=== PATIENT | male | born 1975 | race Two or more races ===

== ENCOUNTER → 2018-04-05 | Outpatient (CLI) | payer MEDICAID ==
--- NOTE | 2018-04-05 10:40 | RADIOLOGY REPORT (SQ) ---
EXAM DESCRIPTION: CHEST PA/LATERAL COMPLETED DATE/TIME: 04/05/2018 10:07 am REASON FOR STUDY: COUGH COMPARISON: 09/21/2015 EXAM PARAMETERS: NUMBER OF VIEWS: two views TECHNIQUE: Digital Frontal and Lateral radiographic views of the chest acquired. RADIATION DOSE: NA LIMITATIONS: none FINDINGS: LUNGS AND PLEURA: No opacities, masses or pneumothorax. No pleural effusion. MEDIASTINUM AND HILAR STRUCTURES: No masses or contour abnormalities. HEART AND VASCULAR STRUCTURES: Heart normal size. No evidence for failure. BONES: No acute findings. HARDWARE: None in the chest. OTHER: No other significant finding. IMPRESSION: NO SIGNIFICANT RADIOGRAPHIC FINDING IN THE CHEST. TECHNICAL DOCUMENTATION: JOB ID: [id number] [employer] Document Preparation- All Rights Reserved Reading location - IP/workstation name: [email or web address]
--- NOTE | 2018-04-05 10:44 | RADIOLOGY REPORT (SQ) ---
EXAM DESCRIPTION: PARANASAL SINUSES COMPLETED DATE/TIME: 04/05/2018 10:07 am REASON FOR STUDY: COUGH R05 COUGH COMPARISON: None. NUMBER OF VIEWS: Three views. TECHNIQUE: Images of the paranasal sinuses acquired. LIMITATIONS: None. FINDINGS: ORBITS: No fracture. No foreign body. SINUSES: No mucosal thickening. No air fluid levels. FACIAL BONES: No fracture. OTHER: No other significant finding. IMPRESSION: NO FOREIGN BODY OR FRACTURE. NO PLAIN RADIOGRAPHIC EVIDENCE FOR SINUS DISEASE. TECHNICAL DOCUMENTATION: JOB ID: [id number] [employer]- All Rights Reserved Reading location - IP/workstation name: [email or web address]
== END ==
LOC: OD 09:30
PROVIDERS: ATTEND Internal Medicine
DX: R05 Cough (principal)
CPT/HCPCS: 70220; 71046

== ENCOUNTER 2019-03-12 12:55 | Emergency (ER) | payer SELFPAY ==
--- NOTE | 2019-03-12 13:17 | ER Document Report ---
ED Medical Screen (RME) - General Chief Complaint: Suicidal Ideation Stated Complaint: SUICIDAL IDEATION Time Seen by Provider: 03/12/19 13:13 Primary Care Provider: PARISH MURILLO MD [Primary Care Provider] - Follow up as needed Mode of Arrival: Ambulatory Information source: Patient Notes: 43-year-old male presented to ED for attempted suicide this morning. He states he put a gun to his head and someone took the gun from him and his put it out of his reach at this time. He states he has thought of an attempted suicide in the past. He was diagnosed with depression a few years ago and putting on Xanax. He states he has been on Xanax for 3 years and was on Zoloft before that. He said his family doctor put him on these he has never seen a mental health provider. She denies smoking, alcohol, but states he has been purchasing oxycodone intake and 6 a day and has not had any in over a week. I have greeted and performed a rapid initial assessment of this patient. A comprehensive ED assessment and evaluation of the patient, analysis of test results and completion of medical decision making process will be conducted by an additional ED providers. TRAVEL OUTSIDE OF THE [place] IN LAST 30 DAYS: No - Related Data Allergies/Adverse Reactions: No Known Allergies Allergy (Verified 09/22/15 03:04) Past Medical History - Social History Frequency of alcohol use: None Drug Abuse: None - Past Medical History Cardiac Medical History: Reports: Hx Hypertension Pulmonary Medical History: Reports: Hx Asthma Musculoskeltal Medical History: Reports Hx Arthritis - DDD Psychiatric Medical History: Reports: Hx Depression Past Surgical History: Reports: Hx Orthopedic Surgery - L5 laminectomy, Hx Tonsillectomy - Immunizations Hx Diphtheria, Pertussis, Tetanus Vaccination: Yes Physical Exam - Vital signs Vitals: Temp Pulse Resp BP Pulse Ox 97.6 F 118 H 24 H 125/75 94 03/12/19 12:58 03/12/19 12:58 03/12/19 12:58 03/12/19 12:58 03/12/19 12:58 Course - Vital Signs Vital signs: Temp Pulse Resp BP Pulse Ox 97.6 F 118 H 24 H 125/75 94 03/12/19 12:58 03/12/19 12:58 03/12/19 12:58 03/12/19 12:58 03/12/19 12:58 Doctor's Discharge - Discharge Referrals: PARISH MURILLO MD [Primary Care Provider] - Follow up as needed
[2019-03-12 13:58] LABS: ABSOLUTE BASOPHILS # (AUTO) 0.1 10^3/uL (0.0-0.2); ABSOLUTE EOSINOPHILS # (AUTO) 0.2 10^3/uL (0.0-0.6); ABSOLUTE LYMPHOCYTES (AUTO) 3.2 10^3/uL (0.5-4.7); ABSOLUTE MONOCYTES (AUTO) 0.8 10^3/uL (0.1-1.4); BASOPHILS % (AUTO) 0.8 % (0-2); EOSINOPHILS % (AUTO) 2.1 % (0-6); HEMATOCRIT 44.5 % (37.9-51.0); HEMOGLOBIN 14.7 g/dL (13.5-17.0); LYMPHOCYTES % (AUTO) 34.6 % (13-45); MEAN CORPUSCULAR HEMOGLOBIN 29.9 pg (27.0-33.4); MEAN CORPUSCULAR HGB CONC 32.9 g/dL (32.0-36.0); MEAN CORPUSCULAR VOLUME 91 fl (80-97); MONOCYTES % (AUTO) 8.8 % (3-13); PLATELET COUNT 256 10^3/uL (150-450); RED BLOOD COUNT 4.91 10^6/uL (4.35-5.55); RED CELL DISTRIBUTION WIDTH 13.9 % (11.5-14.0); SEGMENTED NEUTROPHILS % (AUTO) 53.7 % (42-78); TOTAL CELLS COUNTED % (AUTO) 100 %; WHITE BLOOD COUNT 9.3 10^3/uL (4.0-10.5)
[2019-03-12 14:12] LABS: APPEARANCE,URINE SLIGHTLY-CLOUDY; BILIRUBIN,URINE NEGATIVE (NEGATIVE); COLOR,URINE YELLOW; GLUCOSE, URINE 50 mg/dL (NEGATIVE); KETONES,URINE TRACE mg/dL (NEGATIVE); LEUKOCYTE ESTERASE,URINE NEGATIVE (NEGATIVE); NITRITE,URINE NEGATIVE (NEGATIVE); PROTEIN,URINE NEGATIVE (NEGATIVE); URINE SPECIFIC GRAVITY 1.032
[2019-03-12 14:21] LABS: ALBUMIN 4.4 g/dL (3.5-5.0); ALKALINE PHOSPHATASE 78 U/L (38-126); ANION GAP 12 (5-19); ASPARTATE AMINO TRANSFERASE 41 U/L (17-59); BILIRUBIN,DIRECT 0.2 mg/dL (0.0-0.4); BILIRUBIN,TOTAL 0.6 mg/dL (0.2-1.3); BLOOD UREA NITROGEN 22 mg/dL (7-20); CALCIUM 9.1 mg/dL (8.4-10.2); CARBON DIOXIDE 27 mmol/L (22-30); CHLORIDE 99 mmol/L (98-107); GLUCOSE 219 mg/dL (75-110); TOTAL PROTEIN 7.5 g/dL (6.3-8.2)
[2019-03-12 14:23] LABS: ACETAMINOPHEN < 10 ug/mL (10-30); ALCOHOL < 10 mg/dL (NONE DETECTED); SALICYLATE < 1.0 mg/dL (2.0-20.0)
[2019-03-12 14:28] LABS: URINE AMPHETAMINES SCREEN NEGATIVE; URINE BARBITURATES SCREEN NEGATIVE; URINE BENZODIAZEPINES SCREEN UNCONFIRMED POSITIVE; URINE COCAINE SCREEN NEGATIVE; URINE MARIJUANA (THC) SCREEN NEGATIVE; URINE METHADONE SCREEN NEGATIVE; URINE PHENCYCLIDINE SCREEN NEGATIVE
--- NOTE | 2019-03-12 14:51 | ER Document Report ---
ED Psych Disorder / Suicide - General Mode of Arrival: Ambulatory TRAVEL OUTSIDE OF THE [place] IN LAST 30 DAYS: No - HPI Patient complains to provider of: Suicidal attempt - Pt with h/o anxiety/depression with SI for several days and suicide attempt this am (put a loaded gun to his head). He denies prior suicide attempt. He is here with his sister. <GAVIN TURNER - Last Filed: 03/12/19 14:44> <ALEX GREEN - Last Filed: 03/12/19 19:07> - General Mode of Arrival: Ambulatory Information source: Patient <MADISON RICH - Last Filed: 03/12/19 21:32> - General Chief Complaint: Suicidal Ideation Stated Complaint: SUICIDAL IDEATION Time Seen by Provider: 03/12/19 13:13 Primary Care Provider: [facility] [Outside] - Follow up in 3-5 days [facility] [Outside] - Follow up as needed PARISH MURILLO MD [Primary Care Provider] - Follow up as needed - Related Data Allergies/Adverse Reactions: No Known Allergies Allergy (Verified 09/22/15 03:04) Past Medical History - General Information source: Patient - Social History Smoking Status: Never Smoker Frequency of alcohol use: None Drug Abuse: None Family History: Reviewed & Not Pertinent Patient has suicidal ideation: Yes Patient has homicidal ideation: No - Past Medical History Cardiac Medical History: Reports: Hx Hypertension Pulmonary Medical History: Reports: Hx Asthma Musculoskeletal Medical History: Reports Hx Arthritis - DDD Psychiatric Medical History: Reports: Hx Depression Past Surgical History: Reports: Hx Orthopedic Surgery - L5 laminectomy, Hx Tonsillectomy - Immunizations Hx Diphtheria, Pertussis, Tetanus Vaccination: Yes <GAVIN TURNER - Last Filed: 03/12/19 14:44> Review of Systems - Review of Systems Constitutional: No symptoms reported EENT: No symptoms reported Cardiovascular: No symptoms reported Respiratory: No symptoms reported Gastrointestinal: No symptoms reported Musculoskeletal: No symptoms reported Neurological/Psychological: See HPI, Suicidal ideation -: Yes All other systems reviewed and negative <GAVIN TURNER - Last Filed: 03/12/19 14:44> Physical Exam - General General appearance: Appears well In distress: None - HEENT Pharynx: Normal Neck: Normal - Respiratory Respiratory status: No respiratory distress Breath sounds: Normal - Cardiovascular Rhythm: Regular Heart sounds: Normal auscultation Murmur: No - Abdominal Bowel sounds: Normal Organomegaly: No organomegaly - Extremities General upper extremity: Normal inspection General lower extremity: Normal inspection - Neurological Neuro grossly intact: Yes Cognition: Normal Orientation: AAOx4 Speech: Normal Sensory: Normal <GAVIN TURNER - Last Filed: 03/12/19 14:44> - Vital signs Vitals: Temp Pulse Resp BP Pulse Ox 97.6 F 118 H 24 H 125/75 94 03/12/19 12:58 03/12/19 12:58 03/12/19 12:58 03/12/19 12:58 03/12/19 12:58 Course - Laboratory Result Diagrams: 03/12/19 13:25 03/12/19 13:25 <GAVIN TURNER - Last Filed: 03/12/19 14:44> - Laboratory Result Diagrams: 03/12/19 13:25 03/12/19 13:25 <ALEX GREEN - Last Filed: 03/12/19 19:07> - Laboratory Result Diagrams: 03/12/19 13:25 03/12/19 13:25 <MADISON RICH - Last Filed: 03/12/19 21:32> - Re-evaluation Re-evalutation: 03/12/19 21:31 Patient was seen and evaluated by psychiatry who agreed that the patient was not an imminent risk to himself or others at the current time. The patient was thought not to need involuntary commitment based upon this evaluation. I interviewed the patient and family member was a her with him. The patient will not stay at home alone tonight and will have support and has plans for outpatient follow-up and treatment. No current suicidality or homicidality. No hallucinations. (MADISON RICH) - Vital Signs Vital signs: Temp Pulse Resp BP Pulse Ox 98.3 F 103 H 16 134/72 H 95 03/12/19 20:47 03/12/19 20:47 03/12/19 20:47 03/12/19 20:47 03/12/19 20:47 - Laboratory Laboratory results interpreted by me: 03/12/19 03/12/19 13:25 13:25 BUN 22 H Glucose 219 H Urine Glucose (UA) 50 H Urine Ketones TRACE H Urine Urobilinogen 2.0 H Urine Ascorbic Acid 20 H Salicylates < 1.0 L Acetaminophen < 10 L Discharge <GAVIN TURNER - Last Filed: 03/12/19 14:44> <ALEX GREEN - Last Filed: 03/12/19 19:07> <MADISON RICH - Last Filed: 03/12/19 21:32> - Discharge Clinical Impression: Suicidal ideation Depression Qualifiers: Depression Type: unspecified Qualified Code(s): F32.9 - Major depressive disorder, single episode, unspecified Condition: Stable Disposition: HOME, SELF-CARE Additional Instructions: You have been evaluated both medical and behavioral health teams have been deemed appropriate for discharge. You are recommended to follow-up with outpatient mental health services for both medication management and therapeutic services. You have been provided a prescription for Zyprexa 5 mg every morning and 2.5 mg nightly; please take as directed. You have been provided local resource list of area providers including mobile crisis contact information and our local [place] crisis [facility] facility. DEPRESSION: Your evaluation reveals that you have mental depression. While symptoms may be vague, they often include disturbance of sleep, fatigue, loss of appetite, and general loss of interest in life. While depression may be a side effect of drugs, or a reaction to a major change in your life, many cases have no known cause. If depression is acute, and related to a major loss in your life, you can expect it to clear completely with time. If you have been depressed a long time, are prone to repeated bouts of depression or low mood, or have been thinking of suicide, get help. Depression can be treated with anti-depressant medication and counselling. Long-term depression will often take a few weeks to clear, even with appropriate medication. Follow-up care is important. SUICIDAL IDEATION: Suicidal ideation is a common medical term for thoughts about suicide, which may be as detailed as a formulated plan, without the suicidal act itself. Although most people who undergo suicidal ideation do not commit suicide, some go on to make suicide attempts. The range of suicidal ideation varies greatly from fleeting to detailed planning, role playing, and unsuccessful attempts. While thoughts about suicide are common, most people do not carry out serious actions to commit suicide. Based upon your evaluation and discussion with you, we do not believe you are currently at risk to act upon your thoughts of suicide. You have agreed to return to the Emergency Department, at any time, if you feel inclined to act upon your suicidal thoughts. FOLLOW-UP CARE: If you have been referred to a physician for follow-up care, call the physicians office for an appointment as you were instructed or within the next two days. If you experience worsening or a significant change in your symptoms, notify the physician immediately or return to the Emergency Department at any time for re-evaluation. Referrals: PARISH MURILLO MD [Primary Care Provider] - Follow up as needed [facility] [Outside] - Follow up as needed [facility] [Outside] - Follow up in 3-5 days
--- NOTE | 2019-03-12 16:56 | EKG REPORT ---
SEVERITY:- OTHERWISE NORMAL ECG - SINUS TACHYCARDIA : Confirmed by: Courtney Polanco MD 12-Mar-2019 16:55:26
[2019-03-12 21:52] VITALS: BP 123/64
--- NOTE | 2019-03-13 11:49 | PSYCHOLOGICAL NOTE ---
Psych Note - Psych Note Date seen by psych provider: 03/12/19 Time seen by psych provider: 18:30 Psych Note: Met with Patient who advised that earlier today he put a loaded gun to his head with intent to kill himself. He reported he text with his sister who helped him to put the gun down and consider the impact of his 12-year old son with whom he has custody.
== END 2019-03-12 22:00 | disposition home or self-care (01) ==
LOC: ER 12:55
DX: R45.851 Suicidal ideations (principal); F32.9 Major depressive disorder, single episode, unspecified; Z79.899 Other long term (current) drug therapy
CPT/HCPCS: 36415; 80053; 80307; 81001; 85025; 93005; 93010; 99285

== ENCOUNTER 2019-03-14 12:45 | Emergency (ER) | payer SELFPAY ==
--- NOTE | 2019-03-14 13:16 | ER Document Report ---
ED Medical Screen (RME) - General Chief Complaint: Suicidal Ideation Stated Complaint: PSYCH EVAL/SUICIDAL IDEATION Time Seen by Provider: 03/14/19 13:12 Primary Care Provider: PARISH MURILLO MD [Primary Care Provider] - Follow up as needed Mode of Arrival: Ambulatory Information source: Patient Notes: Patient presents reporting suicidal ideation. Patient states that he did hold a gun to his head 2 days ago. Patient states that he was being seen at [facility] but they told him that they could not care for him due to his complicated medical history. Patient with a history of diabetes, hypertension and chronic back pain. Patient uncertain of the history of mental illness although states that he was told he may have bipolar disorder. I have greeted and performed a rapid initial assessment of this patient. A comprehensive ED assessment and evaluation of the patient, analysis of test results and completion of the medical decision making process will be conducted by additional ED providers. TRAVEL OUTSIDE OF THE [place] IN LAST 30 DAYS: No - Related Data Allergies/Adverse Reactions: No Known Allergies Allergy (Verified 03/14/19 13:08) Past Medical History - Social History Chew tobacco use (# tins/day): No Frequency of alcohol use: None Drug Abuse: None - Past Medical History Cardiac Medical History: Reports: Hx Hypertension Pulmonary Medical History: Reports: Hx Asthma Musculoskeltal Medical History: Reports Hx Arthritis - DDD Psychiatric Medical History: Reports: Hx Depression Past Surgical History: Reports: Hx Orthopedic Surgery - L5 laminectomy, Hx Tonsillectomy - Immunizations Hx Diphtheria, Pertussis, Tetanus Vaccination: Yes Physical Exam - Psychological Associated symptoms: Other - Suicidal ideation Doctor's Discharge - Discharge Referrals: PARISH MURILLO MD [Primary Care Provider] - Follow up as needed
[2019-03-14 14:52] LABS: ABSOLUTE BASOPHILS # (AUTO) 0.1 10^3/uL (0.0-0.2); ABSOLUTE EOSINOPHILS # (AUTO) 0.2 10^3/uL (0.0-0.6); ABSOLUTE LYMPHOCYTES (AUTO) 2.7 10^3/uL (0.5-4.7); ABSOLUTE MONOCYTES (AUTO) 0.9 10^3/uL (0.1-1.4); ABSOLUTE NEUT (AUTO) 6.3 10^3/uL (1.7-8.2); BASOPHILS % (AUTO) 0.9 % (0-2); EOSINOPHILS % (AUTO) 1.6 % (0-6); HEMATOCRIT 43.8 % (37.9-51.0); HEMOGLOBIN 14.5 g/dL (13.5-17.0); LYMPHOCYTES % (AUTO) 26.3 % (13-45); MEAN CORPUSCULAR HEMOGLOBIN 29.6 pg (27.0-33.4); MEAN CORPUSCULAR VOLUME 90 fl (80-97); PLATELET COUNT 248 10^3/uL (150-450); SEGMENTED NEUTROPHILS % (AUTO) 62.2 % (42-78); TOTAL CELLS COUNTED % (AUTO) 100 %; WHITE BLOOD COUNT 10.1 10^3/uL (4.0-10.5)
[2019-03-14 14:54] LABS: APPEARANCE,URINE CLEAR; BILIRUBIN,URINE NEGATIVE (NEGATIVE); COLOR,URINE YELLOW; GLUCOSE, URINE >=500 mg/dL (NEGATIVE); KETONES,URINE NEGATIVE (NEGATIVE); LEUKOCYTE ESTERASE,URINE NEGATIVE (NEGATIVE); NITRITE,URINE NEGATIVE (NEGATIVE); PROTEIN,URINE NEGATIVE (NEGATIVE)
[2019-03-14 15:00] LABS: ALBUMIN 4.2 g/dL (3.5-5.0); ALKALINE PHOSPHATASE 66 U/L (38-126); ANION GAP 9 (5-19); ASPARTATE AMINO TRANSFERASE 36 U/L (17-59); BILIRUBIN,DIRECT 0.1 mg/dL (0.0-0.4); BILIRUBIN,TOTAL 0.4 mg/dL (0.2-1.3); BLOOD UREA NITROGEN 17 mg/dL (7-20); CALCIUM 9.2 mg/dL (8.4-10.2); CARBON DIOXIDE 28 mmol/L (22-30); CHLORIDE 103 mmol/L (98-107); GLUCOSE 209 mg/dL (75-110); POTASSIUM 4.4 mmol/L (3.6-5.0); TOTAL PROTEIN 7.7 g/dL (6.3-8.2)
[2019-03-14 15:02] LABS: ACETAMINOPHEN < 10 ug/mL (10-30); ALCOHOL < 10 mg/dL (NONE DETECTED)
[2019-03-14 15:10] LABS: URINE AMPHETAMINES SCREEN NEGATIVE; URINE BARBITURATES SCREEN NEGATIVE; URINE BENZODIAZEPINES SCREEN NEGATIVE; URINE COCAINE SCREEN NEGATIVE; URINE MARIJUANA (THC) SCREEN NEGATIVE; URINE METHADONE SCREEN NEGATIVE; URINE PHENCYCLIDINE SCREEN NEGATIVE
--- NOTE | 2019-03-14 16:22 | PSYCHOLOGICAL NOTE ---
Psych Note - Psych Note Date seen by psych provider: 03/14/19 Time seen by psych provider: 14:25 Psych Note: Reason for Consult: Suicidal Ideation Patient presents reporting suicidal ideation. Patient states that he did hold a gun to his head 2 days ago. Patient states that he was being seen at [facility] but they told him that they could not care for him due to his complicated medical history. Patient reports he went to [facility] for hip follow-up as instructed to do after his being seen on Tuesday. He states that when he told them he was still having thoughts of harming himself they brought him to [facility]. After sitting over at [facility] they reported that he is medical condition was too acute for them and that he had to be evaluated at [facility] ED. Patient confirms he has not tried to hurt himself at all that he is just been experiencing passive suicidal ideation i.e. no plans means or intent. Patient discloses wanting to get help which is why he followed up with [facility] today. He denies any difficulties with withdrawal. Patient is alert and orientated to person, place, time and circumstance. Mood euthymic with blunted affect. Patient endorses chronic passive suicidal ideation from "years." he denies homicidal ideation. Delusions are absent and behaviors congruent with an intact reality based presentation ie organized and linear thought process. Eye contact is well-maintained. Conversational speech is within normal rate, tone and prosody. Intellectual abilities appear to be within the average range. Attention and concentration are good. Insight, judgment, impulse control are good. Diagnosis: Substance abuse Bipolar No medication recommendations at this time Impression\\plan: Patient is cleared from acute psychiatric services. Patient presents to [facility] with passive chronic suicidal ideation i.e. no plans means or intent. Patient was evaluated by Dr. Mullen 2 days ago after the event the patient discusses of holding a gun to his head. His follow-up plan of care was to go to [facility] for outpatient mental health services. Patient was attempting to follow through with his mental health recommendation however when he disclosed that he was still having passive suicidal ideation they brought him to the crisis center. Patient has not had any further difficulties with suicidal gestures, attempts, or planning after being evaluated on Tuesday. Patient has a strong support network with family that lives next door to the patient; he can even stay with his sister or father which are both his neighbors. Dr. Mullen was consulted to care management of this patient; attending physicians in agreement with recommendations and disposition.
--- NOTE | 2019-03-14 16:54 | ER Document Report ---
ED Psych Disorder / Suicide - General Chief Complaint: Suicidal Ideation Stated Complaint: PSYCH EVAL/SUICIDAL IDEATION Time Seen by Provider: 03/14/19 13:12 Primary Care Provider: PARISH MURILLO MD [ACTIVE STAFF] - Follow up as needed Mode of Arrival: Ambulatory Notes: 43-year-old male with history of depression and anxiety, [id number] diabetes mellitus, hypertension, chronic back and nerve pain presents to the emergency department with suicidal ideations. Patient seen here 2 days ago for the same chief complaint where he put a gun to his head but was talked down by his sister and subsequently discharged by a psychiatric team. Patient states that the feeling is not subsided so he called [facility] and was brought in here today. Patient denies homicidal ideations, denies any auditory or visual hallucinations. TRAVEL OUTSIDE OF THE [place] IN LAST 30 DAYS: No - Related Data Allergies/Adverse Reactions: No Known Allergies Allergy (Verified 03/14/19 13:08) Past Medical History - General Information source: Patient - Social History Smoking Status: Never Smoker Chew tobacco use (# tins/day): No Frequency of alcohol use: None Drug Abuse: None Family History: Reviewed & Not Pertinent Patient has suicidal ideation: Yes Patient has homicidal ideation: Yes - Past Medical History Cardiac Medical History: Reports: Hx Hypertension Pulmonary Medical History: Reports: Hx Asthma Musculoskeletal Medical History: Reports Hx Arthritis - DDD Psychiatric Medical History: Reports: Hx Depression Past Surgical History: Reports: Hx Orthopedic Surgery - L5 laminectomy, Hx Tonsillectomy - Immunizations Hx Diphtheria, Pertussis, Tetanus Vaccination: Yes Review of Systems - Review of Systems Constitutional: See HPI EENT: No symptoms reported Cardiovascular: See HPI Respiratory: See HPI Gastrointestinal: See HPI Genitourinary: No symptoms reported Male Genitourinary: No symptoms reported Musculoskeletal: No symptoms reported Skin: No symptoms reported Hematologic/Lymphatic: No symptoms reported Neurological/Psychological: See HPI Physical Exam - Vital signs Vitals: Temp Pulse Resp BP Pulse Ox 98.4 F 113 H 16 150/78 H 93 03/14/19 13:06 03/14/19 13:06 03/14/19 13:06 03/14/19 13:06 03/14/19 13:06 - Notes Notes: PHYSICAL EXAMINATION: Reviewed vital signs and charting by RN GENERAL: Alert, interacts well. No acute distress. HEAD: Normocephalic, atraumatic. EYES: Pupils equal and round. Extraocular movements intact. ENT: Oral mucosa moist, tongue midline. NECK: Full range of motion. Trachea midline. LUNGS: Clear to auscultation bilaterally, no wheezes, rales, or rhonchi. No respiratory distress. HEART: Regular rate and rhythm. No murmur ABDOMEN: soft, non-tender. No distention. Bowel sounds present EXTREMITIES: Moves all 4 extremities spontaneously. No edema, No cyanosis. PSYCH: Flat affect, depressed mood SKIN: Warm, dry, normal turgor. No rashes or lesions noted. Course - Re-evaluation Re-evalutation: 03/14/19 17:19 Patient presents for follow-up per [facility]. Patient seen here on 03/12 and was discharged by the psychiatric team. Patient attempted to go to [place] but due to his medical comorbidities they deemed he was not a candidate for their facility so he came here. Patient has been medically cleared. It appears the patient is medically stable for discharge and mental health wishes to discharge patient with close follow-up services in place. - Vital Signs Vital signs: Temp Pulse Resp BP Pulse Ox 98.4 F 113 H 16 150/78 H 93 03/14/19 13:06 03/14/19 13:06 03/14/19 13:06 03/14/19 13:06 03/14/19 13:06 - Laboratory Result Diagrams: 03/14/19 14:43 03/14/19 14:18 Laboratory results interpreted by me: 03/14/19 03/14/19 14:18 14:18 Glucose 209 H Urine Glucose (UA) >=500 H Urine Urobilinogen 4.0 H Salicylates 1.0 L Acetaminophen < 10 L Discharge - Discharge Clinical Impression: Suicidal ideation Depression Qualifiers: Depression Type: unspecified Qualified Code(s): F32.9 - Major depressive disorder, single episode, unspecified Condition: Stable Disposition: HOME, SELF-CARE Instructions: Suicidal Ideation ([facility]) Additional Instructions: Please return if you have thoughts of wanting to hurt yourself, hurt others, or have any other symptoms that are concerning to you. Referrals: PARISH MURILLO MD [ACTIVE STAFF] - Follow up as needed
[2019-03-14 18:04] VITALS: BP 155/93
--- NOTE | 2019-03-14 19:04 | EKG REPORT ---
SEVERITY:- NORMAL ECG - SINUS RHYTHM : Confirmed by: Courtney Polanco MD 14-Mar-2019 19:03:16
== END 2019-03-14 18:04 | disposition home or self-care (01) ==
LOC: ER 12:45
DX: R45.851 Suicidal ideations (principal); R45.850 Homicidal ideations; F32.9 Major depressive disorder, single episode, unspecified; E11.9 Type 2 diabetes mellitus without complications; I10 Essential (primary) hypertension; J45.909 Unspecified asthma, uncomplicated
CPT/HCPCS: 36415; 80053; 80307; 81001; 85025; 93005; 93010; 99285

== ENCOUNTER 2020-04-25 08:11 | Emergency (ER) | payer SELFPAY ==
[2020-04-25 08:21] VITALS: BP 134/92
[2020-04-25] MEDS ORDERED: DEXAMETHASONE SOD PHOS INJ 10 MG/1 ML VIAL IM ONE (08:28)
[2020-04-25] MEDS ORDERED: KETOROLAC TROMETHAMINE 60 MG/2 ML SDV IM ONE (08:28)
--- NOTE | 2020-04-25 08:31 | ER Document Report ---
HPI - HPI Time Seen by Provider: 04/25/20 08:15 Context: Patient is a 44-year-old male with a history of hypertension diabetes who presents emergency department with a chief complaint of back pain. He describes his pain as a sharp pain. It woke him up in the morning 3:00 in the morning and radiates down both sides of his legs. Denies any new bladder or bowel dysfunction. States that he has had tingling in both legs since he had back surgery in the past. Patient has not tried to walk this morning. Patient has a history of BPH. - ROS Systems Reviewed and Negative: Yes All other systems reviewed and negative - CONSTITUTIONAL Constitutional: DENIES: Fever, Chills - EENT EENT: DENIES: Sore Throat, Ear Pain, Congestion, Eye problems - NEURO Neurology: DENIES: Headache - CARDIOVASCULAR Cardiovascular: DENIES: Chest pain - RESPIRATORY Respiratory: DENIES: Trouble Breathing, Coughing - GASTROINTESTINAL Gastrointestinal: DENIES: Abdominal Pain, Nausea, Patient vomiting, Diarrhea - URINARY Urinary: DENIES: Dysuria, Urgency, Frequency - REPRODUCTIVE Reproductive: DENIES: : - MUSCULOSKELETAL Musculoskeletal: REPORTS: Extremity pain - radiates from back pain, Back Pain - Bilateral - DERM Skin Color: Normal Skin Problems: None Past Medical History - General Information source: Patient - Social History Smoking Status: Unknown if Ever Smoked Family History: Reviewed & Not Pertinent - Past Medical History Cardiac Medical History: Reports: Hx Hypertension Pulmonary Medical History: Reports: Hx Asthma Musculoskeletal Medical History: Reports Hx Arthritis - DDD Psychiatric Medical History: Reports: Hx Depression Past Surgical History: Reports: Hx Orthopedic Surgery - L5 laminectomy, Hx Tonsillectomy - Immunizations Hx Diphtheria, Pertussis, Tetanus Vaccination: Yes Vertical Provider Document - CONSTITUTIONAL Agree With Documented VS: Yes Exam Limitations: No Limitations General Appearance: No Apparent Distress - INFECTION CONTROL TRAVEL OUTSIDE OF THE [place] IN LAST 30 DAYS: No - HEENT HEENT: Atraumatic, Normocephalic, PERRLA - NECK Neck: Normal Inspection - RESPIRATORY Respiratory: Breath Sounds Normal, No Respiratory Distress - CARDIOVASCULAR Cardiovascular: Regular Rate, Regular Rhythm Pulses: Normal: Radial - MUSCULOSKELETAL/EXTREMETIES Musculoskeletal/Extremeties: FROM, Tender - Bilateral lower back - NEURO Level of Consciousness: Awake, Alert, Appropriate Motor/Sensory: No Motor Deficit, No Sensory Deficit - DERM Integumentary: Warm, Dry, No Rash Course - Re-evaluation Re-evalutation: 04/25/20 10:37 Patient states that he feels better. He is able to move his legs. Range of motion is improved. Have a low suspicion for cauda equina syndrome, epidural abscess, or any life-threatening etiology at this time. Advised patient to follow-up with his primary care provider and get a referral for physical therapy. He is in agreement with this plan. Follow-up precautions were given. Verbal discharge instructions were given to the patient. They verbalized understanding. They are stable for discharge. - Vital Signs Vital signs: Temp Pulse Resp BP Pulse Ox 97.9 F 84 18 134/92 H 95 04/25/20 08:20 04/25/20 08:20 04/25/20 08:20 04/25/20 08:20 04/25/20 08:20 Discharge - Discharge Clinical Impression: Back pain Qualifiers: Back pain location: low back pain Chronicity: acute Back pain laterality: bilateral Sciatica presence: with sciatica Sciatica laterality: bilateral sciatica Qualified Code(s): M54.42 - Lumbago with sciatica, left side Condition: Stable Disposition: HOME, SELF-CARE Additional Instructions: You were seen today in the emergency department for back pain. Please follow-up with your primary care provider and get a referral for physical therapy. Take Flexeril as needed. You can also take ibuprofen 600 mg every 6 hours as needed for pain. Prescriptions: Cyclobenzaprine HCl [Flexeril 10 mg Tablet] 10 mg PO TIDP PRN #15 tab PRN Reason: Forms: Return to Work Referrals: BOY DAVIS MD [PEDIATRICS] - 04/28/20
[2020-04-25] MEDS ORDERED: LIDOCAINE 5% (700 MG) TRANSDERMAL ADH..PATCH TP ONE (08:32)
[2020-04-25] MEDS ORDERED: DEXAMETHASONE SOD PHOSPHATE INJ 4 MG/1 ML VIAL ONE (08:38)
[2020-04-25 10:12] LABS: APPEARANCE,URINE CLEAR; BILIRUBIN,URINE NEGATIVE (NEGATIVE); COLOR,URINE YELLOW; GLUCOSE, URINE 50 mg/dL (NEGATIVE); KETONES,URINE NEGATIVE (NEGATIVE); PROTEIN,URINE NEGATIVE (NEGATIVE); URINE SPECIFIC GRAVITY 1.024; UROBILINOGEN,URINE NEGATIVE mg/dL (<2.0)
== END 2020-04-25 11:10 | disposition home or self-care (01) ==
LOC: ER 08:11
DX: M54.42 Lumbago with sciatica, left side (principal); M54.41 Lumbago with sciatica, right side; I10 Essential (primary) hypertension; E11.9 Type 2 diabetes mellitus without complications; J45.909 Unspecified asthma, uncomplicated; Z98.890 Other specified postprocedural states
CPT/HCPCS: 99284; 96372; 81001; J1885; J1100

== ENCOUNTER 2020-04-29 23:32 | Emergency (ER) | payer SELFPAY ==
[2020-04-30] MEDS ORDERED: OXYCODONE-ACETAMINOPHEN 5-325 MG TABLET PO ONE (00:40)
[2020-04-30] MEDS ORDERED: PREDNISONE 20 MG TABLET PO ONE (00:40)
--- NOTE | 2020-04-30 00:42 | ER Document Report ---
ED Medical Screen (RME) - General Chief Complaint: Back Pain Stated Complaint: LOWER BACK PAIN Time Seen by Provider: 04/30/20 00:39 Notes: HPI: 44-year-old male presenting by EMS for evaluation of continuing low back pain. Patient reports he was seen 4 days ago for same complaint. Did not follow-up with anyone regarding the back pain. Patient states that the pain is across the entire lower back and seems to radiate down the lateral anterior left leg. He reports numbness and tingling of the leg with difficulty walking secondary to pain and numbness. No incontinence of urine or bowel no fever no trauma. Patient reports prior history of lumbar surgery in 2003 at [facility]. PHYSICAL EXAMINATION: Mild tenderness across the lumbar back with increased discomfort on the left side into the left gluteal region. Patient is able to lift the left leg in the wheelchair, somewhat limited exam by positioning. No saddle anesthesia. Reports some numbness tingling over the anterior and lateral portions of the left leg I have greeted and performed a rapid initial assessment of this patient. A comprehensive ED assessment and evaluation of the patient, analysis of test results and completion of medical decision making process will be conducted by an additional ED providers. TRAVEL OUTSIDE OF THE [place] IN LAST 30 DAYS: No - Related Data Allergies/Adverse Reactions: No Known Allergies Allergy (Verified 04/30/20 00:36) Past Medical History - Past Medical History Cardiac Medical History: Reports: Hx Hypertension Pulmonary Medical History: Reports: Hx Asthma Musculoskeltal Medical History: Reports Hx Arthritis - DDD Psychiatric Medical History: Reports: Hx Depression Past Surgical History: Reports: Hx Orthopedic Surgery - L5 laminectomy, Hx Tonsillectomy - Immunizations Hx Diphtheria, Pertussis, Tetanus Vaccination: Yes Physical Exam - Vital signs Vitals: Temp Pulse Resp BP Pulse Ox 98.4 F 111 H 18 142/91 H 93 04/30/20 00:17 04/30/20 00:17 04/30/20 00:17 04/30/20 00:17 04/30/20 00:17 Course - Vital Signs Vital signs: Temp Pulse Resp BP Pulse Ox 98.4 F 111 H 18 142/91 H 93 04/30/20 00:17 04/30/20 00:17 04/30/20 00:17 04/30/20 00:17 04/30/20 00:17
[2020-04-30 01:18] LABS: APPEARANCE,URINE CLOUDY; BILIRUBIN,URINE NEGATIVE (NEGATIVE); COLOR,URINE YELLOW; GLUCOSE, URINE 150 mg/dL (NEGATIVE); KETONES,URINE NEGATIVE (NEGATIVE); LEUKOCYTE ESTERASE,URINE NEGATIVE (NEGATIVE); NITRITE,URINE NEGATIVE (NEGATIVE); PROTEIN,URINE NEGATIVE (NEGATIVE); URINE SPECIFIC GRAVITY 1.024
--- NOTE | 2020-04-30 01:40 | RADIOLOGY REPORT (SQ) ---
EXAM DESCRIPTION: Site: CT LUMBAR SPINE WITHOUT RP: CT LUMBAR SPINE WITHOUT IV CONTRAST CLINICAL HISTORY: 44 years Male; low back pain numbness; TECHNIQUE: Noncontrast lumbar spine CT with sagittal and coronal reconstructions. All CT scans at this facility use dose modulation, iterative reconstruction, and/or weight based dosing when appropriate to reduce radiation dose to as low as reasonably achievable. COMPARISON: None. FINDINGS: Alignment is anatomic. Chronic degenerative changes are noted at multiple levels. L3-L4: Posterior disc bulging, potentially affecting L4 roots. L4-L5: Disc bulging with posterior osteophytic ridging. This reduces the central canal to estimated 6 mm. There is potential bilateral L5 root compression. Mild bilateral foraminal stenosis. L5-S1: Disc bulging with osteophytic ridging slightly eccentric to the left. Moderate bilateral foraminal stenosis. There is no acute fracture. Vertebral heights are preserved. No epidural hematoma. IMPRESSION: 1. No acute fracture or subluxation of the lumbar spine. 2. Chronic degenerative changes as described. If radicular symptoms at L4 or L5, MRI may be warranted.
[2020-04-30] MEDS ORDERED: KETOROLAC TROMETHAMINE 60 MG/2 ML SDV IM ONE (05:53)
[2020-04-30] MEDS ORDERED: DIAZEPAM 5 MG TABLET PO ONE (05:54)
--- NOTE | 2020-04-30 06:01 | ER Document Report ---
ED General - General Chief Complaint: Leg Pain Stated Complaint: LOWER BACK PAIN Time Seen by Provider: 04/30/20 00:39 Notes: 44-year-old male diabetic presents with low back pain 2 to 3 days duration worse with movement preventing him from functioning radiating all the way down his left leg to the feet with new left foot tingling all toes. Severe. Not better with home meds. History of same history of microdiscectomy. Denies fever injur y injection drug use high blood sugars saddle anesthesias bowel or bladder incontinence. Has not contacted primary care or spine team at [facility]. TRAVEL OUTSIDE OF THE [place] IN LAST 30 DAYS: No - Related Data Allergies/Adverse Reactions: No Known Allergies Allergy (Verified 04/30/20 00:36) Home Medications: HTN MEDS. DIABETIC. PROSTATE. TRAAZODONE. PROZAC Past Medical History - General Information source: Patient - Social History Smoking Status: Former Smoker Frequency of alcohol use: None Drug Abuse: None Family History: Reviewed & Not Pertinent - Past Medical History Cardiac Medical History: Reports: Hx Hypertension Pulmonary Medical History: Reports: Hx Asthma Musculoskeletal Medical History: Reports Hx Arthritis - DDD Psychiatric Medical History: Reports: Hx Depression Past Surgical History: Reports: Hx Orthopedic Surgery - L5 laminectomy, Hx Tonsillectomy - Immunizations Hx Diphtheria, Pertussis, Tetanus Vaccination: Yes Review of Systems - Review of Systems Notes: REVIEW OF SYSTEMS GEN: Denies fever, chills, weight loss ENT: Denies sore throat, nasal discharge, ear pain EYES: Denies blurry vision, eye pain, discharge CV: Denies chest pain, palpitations, edema RESP: Denies cough, shortness of breath, wheezing GI: Denies abdominal pain, nausea, vomiting, diarrhea MSK: Back pain leg pain SKIN: Denies rash, skin lesions LYMPH: Denies swollen glands/lymph nodes NEURO: Toes paresthesias PSYCH: Denies depression, suicidal or homicidal ideation PHYSICAL EXAMINATION General: Obvious discomfort especially when moving Head: Atraumatic, normocephalic ENT: Mouth normal, oropharynx moist, no exudates or tonsillar enlargement Eyes: Conjunctiva normal, pupils equal, lids normal Neck: No JVD, supple, no guarding CVS: Normal rate, regular rhythm, no murmurs Resp: No resp distress, equal and normal breath sounds bilaterally GI: Nondistended, soft, no tenderness to palpation, no rebound or guarding Ext: No deformities, no edema, normal range of motion in upper and lower ext, good pulses left foot and ankle Back: No CVA or midline TTP Skin: No rash, warm Lymphatic: No lymphadeopathy noted Neuro: Awake, alert. Face symmetric. GCS 15. Effort dependent weakness left ankle, full strength left leg positive straight leg raise normal sensation left lower extremity. Physical Exam - Vital signs Vitals: Temp Pulse Resp BP Pulse Ox 98.4 F 111 H 18 142/91 H 93 04/30/20 00:17 04/30/20 00:17 04/30/20 00:17 04/30/20 00:17 04/30/20 00:17 Course - Re-evaluation Re-evalutation: 04/30/20 07:23 Acute radiculopathy likely from disc herniation. Prior to my evaluation labs and urine were negative and lumbar CT showed degenerative joint disease. Likely needs MRI physical therapy etc. Discussed steroids Lidoderm, and gabapentin as well as muscle relaxers. Given Toradol and Valium in the EDimproved No red flags for cauda equina or need for ED imaging, discussed elevated blood sugars with steroids discussed [id number] Lidoderm and will follow up with his primary care. I have discussed with the patient there likely diagnosis, aftercare plan, follow-up plans and my usual and customary return precautions. They verbalized understanding of this. Please note that clinical decision making for this patient was made during the 2019 pandemic of novel coronavirus which caused a significant strain on the healthcare system including at this particular facility. Criteria for admission, discharge and level of care decisions as well as treatment decisions have necessarily changed. - Vital Signs Vital signs: Temp Pulse Resp BP Pulse Ox 98.6 F 89 14 138/72 H 98 04/30/20 06:54 04/30/20 06:54 04/30/20 06:54 04/30/20 06:54 04/30/20 06:54 - Laboratory Results Laboratory Results Interpreted: 04/30/20 00:56 Urine Glucose (UA) 150 H Urine Urobilinogen 4.0 H Critical Laboratory Results Reviewed: No Critical Results - Radiology Results Critical Radiology Results Reviewed: No Critical Results Discharge - Discharge Clinical Impression: Degeneration of lumbar intervertebral disc with acute herniation Condition: Good Disposition: HOME, SELF-CARE Instructions: Ice Packs ([facility]), Low Back Pain ([facility]) Additional Instructions: As we discussed you have some lumbar disc disease as well as some bone spurs in your lower back. Your symptoms are consistent with a disc herniation and back spasm which I am going to treat but will require further evaluation probably with an MRI physical therapy primary care and spine follow-up return to the ER if you have any loss of bowel or bladder function numbness while wiping yourself or worsening weakness in your left leg. Prescriptions: Methocarbamol [Robaxin 750 mg Tablet] 750 mg PO Q6HP PRN #30 tablet PRN Reason: Gabapentin 300 mg PO TID #30 capsule Methylprednisolone [Medrol Dosepack (4 mg/Tab) 21 Tab/Dosepak] 4 mg PO ASDIR PRN #21 tab.ds.pk PRN Reason: Forms: Return to Work
[2020-04-30 06:56] VITALS: BP 138/72
== END 2020-04-30 06:54 | disposition home or self-care (01) ==
LOC: ER 23:32
DX: M51.36 Other intervertebral disc degeneration, lumbar region (principal); I10 Essential (primary) hypertension
CPT/HCPCS: 99285; 96372; 81001; 72131; J1885; J7512

== ENCOUNTER 2020-05-02 18:32 | Emergency (ER) | payer MEDICAID ==
--- NOTE | 2020-05-02 19:10 | ER Document Report ---
ED Medical Screen (RME) - General Chief Complaint: Low Back Pain Stated Complaint: BACK/LEG PAIN Time Seen by Provider: 05/02/20 19:06 Mode of Arrival: Medic Information source: Patient Notes: 44-year-old male presents to ED for complaint of low back pain. He states he has been here 3 times in the last week. He states the first time they gave him some steroids and anti-inflammatories and sent him home. Second time they gave him steroids and muscle relaxers and some other medication and sent him home. He states he called [facility] in [place] they stated they could see him on Tuesday. He states that he has not been able to move his legs in the last 4 days. He states he also has only had numbness and tingling in his legs for the last 4 days. Have checked his vital signs his pulse is 140 at this time. I will order blood urine EKG chest x-ray and he will be seen by another provider. I have greeted and performed a rapid initial assessment of this patient. A comprehensive ED assessment and evaluation of the patient, analysis of test results and completion of medical decision making process will be conducted by an additional ED providers. TRAVEL OUTSIDE OF THE [place] IN LAST 30 DAYS: No - Related Data Allergies/Adverse Reactions: No Known Allergies Allergy (Verified 04/30/20 00:36) Past Medical History - Past Medical History Cardiac Medical History: Reports: Hx Hypertension Pulmonary Medical History: Reports: Hx Asthma Musculoskeltal Medical History: Reports Hx Arthritis - DDD Psychiatric Medical History: Reports: Hx Depression Past Surgical History: Reports: Hx Orthopedic Surgery - L5 laminectomy, Hx Tonsillectomy - Immunizations Hx Diphtheria, Pertussis, Tetanus Vaccination: Yes Physical Exam - Vital signs Vitals: Temp Pulse BP Pulse Ox 98.1 F 143 H 173/113 H 90 L 05/02/20 18:56 05/02/20 18:56 05/02/20 18:56 05/02/20 18:56 Course - Vital Signs Vital signs: Temp Pulse Resp BP Pulse Ox 98.1 F 141 H 184/104 H 97 05/02/20 19:05 05/02/20 19:05 05/02/20 19:05 05/02/20 19:05
[2020-05-02 21:36] LABS: ABSOLUTE LYMPHOCYTES (AUTO) 2.4 10^3/uL (0.5-4.7); ABSOLUTE MONOCYTES (AUTO) 1.7 10^3/uL (0.1-1.4); ABSOLUTE NEUT (AUTO) 9.7 10^3/uL (1.7-8.2); BASOPHILS % (AUTO) 0.2 % (0-2); HEMATOCRIT 43.4 % (37.9-51.0); HEMOGLOBIN 14.5 g/dL (13.5-17.0); LYMPHOCYTES % (AUTO) 17.4 % (13-45); MEAN CORPUSCULAR HGB CONC 33.5 g/dL (32.0-36.0); MEAN CORPUSCULAR VOLUME 90 fl (80-97); MONOCYTES % (AUTO) 12.1 % (3-13); PLATELET COUNT 317 10^3/uL (150-450); RED BLOOD COUNT 4.85 10^6/uL (4.35-5.55); RED CELL DISTRIBUTION WIDTH 14.4 % (11.5-14.0); SEGMENTED NEUTROPHILS % (AUTO) 70.3 % (42-78); TOTAL CELLS COUNTED % (AUTO) 100 %; WHITE BLOOD COUNT 13.9 10^3/uL (4.0-10.5)
[2020-05-02 21:52] LABS: ALBUMIN 4.5 g/dL (3.5-5.0); ALKALINE PHOSPHATASE 61 U/L (38-126); ANION GAP 6 (5-19); ASPARTATE AMINO TRANSFERASE 21 U/L (17-59); BILIRUBIN,DIRECT 0.1 mg/dL (0.0-0.4); BILIRUBIN,TOTAL 0.6 mg/dL (0.2-1.3); BLOOD UREA NITROGEN 21 mg/dL (7-20); CALCIUM 9.3 mg/dL (8.4-10.2); CARBON DIOXIDE 29 mmol/L (22-30); CHLORIDE 97 mmol/L (98-107); GLUCOSE 124 mg/dL (75-110); POTASSIUM 4.2 mmol/L (3.6-5.0); TOTAL PROTEIN 7.2 g/dL (6.3-8.2)
--- NOTE | 2020-05-02 22:52 | RADIOLOGY REPORT (SQ) ---
EXAM DESCRIPTION: MRI LUMBAR SPINE WITHOUT CLINICAL HISTORY: 44 years Male; Back pain with radiculopathy increasing symptoms worsening over the last week. Cannot move legs x4 days. Unable to control bladder function x1 day. TECHNIQUE: Noncontrast MRI lumbar spine. COMPARISON: None. FINDINGS: Pedicles are congenitally short. There is straightening of the normal lumbar lordosis. Conus demonstrates normal morphology and terminates at L1-2. There is degenerative bone marrow edema seen prominently at L4-5 and L5-S1. Diffuse disc desiccation and disc height narrowing. Edema is present in the soft tissues posteriorly. The urinary bladder appears to be distended. Retroperitoneum is otherwise unremarkable. No paraspinal abnormality. L1-2:Unremarkable L2-3: Mild bilateral facet arthropathy. There is mild hypertrophy of the epidural fat resulting in narrowing of the thecal sac. L3-4: Pedicles are congenitally short and there is a symmetric disc bulge. There is hypertrophy of the facets and ligamentum flavum. This results in marked spinal stenosis with complete effacement of the CSF space. There is moderate foraminal narrowing. L4-5: Central disc protrusion is identified. In conjunction with short pedicles and mild facet arthropathy there is severe spinal stenosis with complete obliteration of the CSF space. In addition there is endplate spondylosis resulting in mild foraminal narrowing. L5-S1: Left paracentral disc protrusion is noted which most likely touches the left S1 nerve root. There is endplate spondylosis resulting in mild/moderate to severe foraminal narrowing bilaterally. IMPRESSION: 1. 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 In association with degenerative disc disease this results in high-grade, critical central spinal stenosis at L3-4 and L4-5. There may be a superimposed disc protrusion at L4-5. 2. Neural foraminal narrowing bilaterally at the L5-S1 level. 3. The conus appears normal.
--- NOTE | 2020-05-03 01:36 | ER Document Report ---
ED General - General Chief Complaint: Low Back Pain Stated Complaint: BACK/LEG PAIN Time Seen by Provider: 05/02/20 19:06 Mode of Arrival: Medic TRAVEL OUTSIDE OF THE [place] IN LAST 30 DAYS: No - HPI Context: Time:[5] Chief Complaint: [Back pain, unable to walk] [This is a 44-year-old male with history of diabetes presenting with low back pain. Patient states he has been here 3 times in the past week for the same chief complaint. Patient states that they have treated him with anti- inflammatories and steroids and have discharged him home both times. Patient states his pain has worsened and now he is unable to move his legs for the past 4 days. Patient states the only sensation he has in his legs at this point has numbness and tingling in his lower extremities. Patient states he is able to urinate without difficulty but has not had a bowel movement for the past 5 days. Of note, the patient said his last visit to the ER was 2 days ago and he still had some function in his right leg but after he was discharged from the emergency department he lost function in his right lower extremity. ] History obtained from [patient] Symptoms began:[1 week ago] Onset: [Gradual] Timing: [Worsening over time] Quality: [Sharp back pain] Intensity: [5 out of 5] Location: [Lumbar spine] Radiation: [Patient denies radiation] [The pain does not migrate to a new location.] Aggravating factors: Movement Relieving factors: [none] [Denies] SOB [Denies] nausea [Denies] vomiting [Denies] sweats [Denies] fever [Denies] cough [Denies] calf or leg swelling or pain - Related Data Allergies/Adverse Reactions: No Known Allergies Allergy (Verified 04/30/20 00:36) Past Medical History - General Information source: Patient - Social History Smoking Status: Never Smoker Frequency of alcohol use: None Drug Abuse: None Family History: Reviewed & Not Pertinent Patient has homicidal ideation: No - Past Medical History Cardiac Medical History: Reports: Hx Hypertension Pulmonary Medical History: Reports: Hx Asthma Musculoskeletal Medical History: Reports Hx Arthritis - DDD Psychiatric Medical History: Reports: Hx Depression Past Surgical History: Reports: Hx Orthopedic Surgery - L5 laminectomy, Hx Tonsillectomy - Immunizations Hx Diphtheria, Pertussis, Tetanus Vaccination: Yes Review of Systems - Review of Systems Notes: Review of systems as below unless otherwise stated in HPI. CONSTITUTIONAL [No] fever, [No] chills. EYES [No] eye pain. ENT [No] URI symptoms, [No] sore throat, [No] ear pain. CARDIOVASCULAR [No] chest pain, [No] palpitations, [No] edema. RESPIRATORY [No] Cough, [No] SOB, [No] wheezing. GASTROINTESTINAL [No] abdominal pain, [No] nausea, [No] Diarrhea, [No] Vomiting, patient denies bowel movement for the past 5 days, [No] melena, [No] rectal bleeding. GENITOURINARY [No] dysuria, [No] urinary frequency, [No] hematuria, [No] urinary urgency MUSCULOSKELETAL Positive back pain. SKIN [No] Rash. NEUROLOGIC [No] Headache, [No] recent seizures, [No] paralysis,[positive] parathesias bilateral lower extremities. Patient states he has been unable to walk for the past 4 days ENDOCRINE [No] polyuria. HEMO/LYMPATIC [No] easy brusing PSYCHIATRIC [No] depression. Physical Exam - Vital signs Vitals: Temp Pulse BP Pulse Ox 98.1 F 143 H 173/113 H 90 L 05/02/20 18:56 05/02/20 18:56 05/02/20 18:56 05/02/20 18:56 - Notes Notes: CONSTITUTIONAL [Vital signs reviewed, Patient appears uncomfortable comfortable, Alert and oriented X 3, patient is in a supine position on the bed] HEAD [Atraumatic, Normocephalic.] EYES [Eyes are normal to inspection, No discharge from eyes, Extraocular muscles intact, Sclera are normal, Conjunctiva are normal.] ENT [External ears normal to inspection, Nose examination normal, Mouth normal to inspection.] NECK [Normal ROM, No jugular venous distention, No meningeal signs, ] RESPIRATORY CHEST [Chest is nontender, Breath sounds normal, No respiratory distress.] CARDIOVASCULAR [RRR, No murmurs, Normal S1 S2, No rub, No gallop.] ABDOMEN [Abdomen is nontender, No pulsatile masses, No other masses, Bowel sounds normal, No distension, No peritoneal signs, No hernias.] RECTAL Patient has some intact rectal tone PERINEUM Patient denies being able to discern for feeling when his perineum is palpated UPPER EXTREMITY [Inspection normal, No cyanosis, No clubbing, No edema, LOWER EXTREMITY Lower extremity inspection reveals no evidence of trauma NEURO Patient has a brisk left patellar reflex but patellar reflexes absent on the right side. Unable to elicit any type of Babinski response. Patient has no reaction to pinprick of the palmar surface of his feet bilaterally. Patient has areas of anesthesia on both of his lower legs and does not seem to be able to sense pinprick in his lower extremities until the upper legs are reached. Patient has no spontaneous movement of his lower extremities bilaterally even when exposed to painful stimuli such as pinprick SKIN Skin is warm, dry, normal color PSYCHIATRIC [Normal affect. ] Course - Re-evaluation Re-evalutation: 05/03/20 01:55 Results of ED MSE discussed with patient. Recommendation for transfer to facility with neurosurgical capability discussed with patient. Patient is agreeable to this. All questions were answered prior to transfer. - Vital Signs Vital signs: Temp Pulse Resp BP Pulse Ox 98.1 F 141 H 18 163/110 H 78 L 05/02/20 19:05 05/02/20 19:05 05/03/20 02:00 05/02/20 19:34 05/03/20 02:00 - Laboratory Results Result Diagrams: 05/02/20 21:30 05/02/20 21:30 Laboratory Results Interpreted: 05/02/20 05/02/20 21:30 21:30 WBC 13.9 H RDW 14.4 H Absolute Neuts (auto) 9.7 H Absolute Monos (auto) 1.7 H Sodium 132.0 L Chloride 97 L BUN 21 H Glucose 124 H Critical Laboratory Results Reviewed: No Critical Results Attending or Supervising Physician who Reviewed Labs: TIANA NARAYANAN IV - Radiology Results Critical Radiology Results Reviewed: Yes - MRI impression: 1. 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 In association with DDD this results in high-grade, critical central spinal stenosis at L3-4 and L4-5. There may be superimposed disc protrusion at L4-5. 2. neural foraminal narrowing at L5-S1. Conus appears nl Attending or Supervising Physician who Reviewed Radiology: TIANA NARAYANAN IV - EKG Interpretation by Me Additional EKG results interpreted by me: 05/03/20 02:01 EKG obtained on 05/02/2020 at 1955 hrs. was interpreted by this MD. Findings sinus tachycardia, rate 115, normal axis, CO interval appears to be within normal limits, P waves preceding QRS complexes, QRS complexes appear narrow, QTC is 443, CO interval appears to be within normal limits, there are no obvious patterns of ST segment elevation, depression or reciprocal changes seen to suggest acute myocardial ischemia or infarction. There is no prior EKG available for comparison. Impression: Sinus tachycardia with nonspecific ST segments. - Consults Dr. Sadie Lowe, [facility] Neurosurgeon Time consulted: 01:55 - Dr. Lowe accepted pt for transfer to his facility. 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
[2020-05-03] MEDS ORDERED: HYDROMORPHONE HCL INJ/PF 2 MG/ML AMPULE IV ONE (01:37)
[2020-05-03] MEDS ORDERED: ONDANSETRON HCL INJ/PF 4 MG/2 ML SDV IV ONE (01:38)
[2020-05-03] MEDS ORDERED: DEXAMETHASONE SOD PHOS INJ 10 MG/1 ML VIAL IV ONE (01:56)
[2020-05-03 03:55] VITALS: BP 136/89
[2020-05-03 04:01] LABS: APPEARANCE,URINE CLEAR; BILIRUBIN,URINE NEGATIVE (NEGATIVE); COLOR,URINE YELLOW; GLUCOSE, URINE 50 mg/dL (NEGATIVE); KETONES,URINE NEGATIVE (NEGATIVE); LEUKOCYTE ESTERASE,URINE NEGATIVE (NEGATIVE); NITRITE,URINE NEGATIVE (NEGATIVE); PROTEIN,URINE NEGATIVE (NEGATIVE)
--- NOTE | 2020-05-03 15:01 | EKG REPORT ---
SEVERITY:- OTHERWISE NORMAL ECG - SINUS TACHYCARDIA : Confirmed by: Floridalma Burrows 03-May-2020 15:01:31
== END 2020-05-03 03:55 | disposition short-term general hospital (02) ==
LOC: ER 18:32
DX: S14.129A Central cord syndrome at unspecified level of cervical spinal cord, initial encounter (principal); M54.5 Low back pain; R20.0 Anesthesia of skin; X58.XXXA Exposure to other specified factors, initial encounter; I10 Essential (primary) hypertension; J45.909 Unspecified asthma, uncomplicated
CPT/HCPCS: 93005; 99285; 96374; 96375; 36415; 85025; 80053; 81001; 72148; 93010; J1170; J2405; J1100